=== PATIENT | male | born 1945 | race Caucasian/White ===

== ENCOUNTER 2018-04-12 08:48 | Outpatient (CLI) | payer MEDICARE, BC ==
--- NOTE | 2018-04-12 09:40 | RAD ---
CHEST PA AND LATERAL: HISTORY: A 72-year-old male with a history of dyspnea. FINDINGS: Heart size is within normal limits. Atherosclerosis of the aorta. No confluent pneumonia, overt savita ma, or pleural effusion. Stable from prior study. IMPRESSION: No acute intrathoracic disease. Atherosclerosis of the aorta. POS: [facility]
== END 2018-04-12 08:49 | disposition home or self-care (01) ==
LOC: RAD 08:48
PROVIDERS: ATTEND Internal Medicine Pulmonary Disease
DX: R06.00 Dyspnea, unspecified (principal); I70.0 Atherosclerosis of aorta
CPT/HCPCS: 71046

== ENCOUNTER 2018-07-27 07:37 | Outpatient (CLI) | payer MEDICARE, BC ==
--- NOTE | 2018-07-27 10:24 | MRI ---
MRI LUMBAR SPINE WITHOUT CONTRAST: Date: 07/27/18 COMPARISON: 08/07/15. HISTORY: Lumbar radiculopathy, chronic low back pain with occasional pain radiating into the right leg. TECHNIQUE: Multiplanar, multisequence MR imaging of the lumbar spine provided without contrast. FINDINGS: The sagittal [facility] demonstrates degenerative end plate change at the L2-3 level, similar when compared to the prior exam. On the basis of five lumbar-type vertebral bodies, conus medullaris termi nates at L1-2. T12-L1: Disc space narrowing, disc desiccation, anterior osteophyte formation, and central/left para central disc protrusion present with associated posterior osteophyte. There is superior disc herniati on at T12 as well. This causes a moderate degree of central canal stenosis at the T12-L1 level, which is similar when compared to prior imaging. There is disc protrusion also extending into the left daniela ral foramen. There is moderate/severe left neural foraminal stenosis and mild to moderate right neura l foraminal stenosis, similar when compared to prior imaging. L1-2: Mild bilateral facet hypertrophy. Disc space narrowing and mild disc bulge. No significant elyse tral canal stenosis. Mild bilateral facet hypertrophy with mild bilateral neural foraminal stenosis. L1-2: Disc space narrowing, disc desiccation, anterior osteophyte formation, and disc osteophyte com plex present. Prominent bilateral facet hypertrophy and hypertrophy of the ligamentum flavum. There i s severe stable central canal stenosis. There is mild right and moderate left neural foraminal stenos is, stable as well. L3-4: Disc space narrowing, disc desiccation, and disc osteophyte complex. Moderate bilateral facet hypertrophy and hypertrophy of the ligamentum flavum with a moderate degree of central canal stenosis , slightly worsened since the prior exam. Moderate right and mild left neural foraminal stenosis, tavon ssly unchanged. L4-5: Minimal anterolisthesis of L4 on L5, stable. Moderate bilateral facet hypertrophy. Moderate bi lateral neural foraminal stenosis, right greater than left, slightly worsened since the prior exam. M ild slightly worsened central canal stenosis. L5-S1: Prominent bilateral facet hypertrophy, right greater than left. No significant central canal stenosis. Mild right and moderate left neural foraminal stenosis, not significantly changed. The imaged retroperitoneal structures appear grossly unremarkable. IMPRESSION: Multilevel degenerative change noted within the lumbar spine as detailed above, slightly worsened whe n compared to the 08/07/15 exam. POS: [facility]
== END 2018-07-27 07:38 | disposition home or self-care (01) ==
LOC: BICMRI 07:37
PROVIDERS: ATTEND Neurological Surgery
DX: M47.26 Other spondylosis with radiculopathy, lumbar region (principal); M47.27 Other spondylosis with radiculopathy, lumbosacral region
CPT/HCPCS: 72148

== ENCOUNTER 2019-05-25 06:05 | Outpatient (CLI) | payer MEDICARE, BC ==
--- NOTE | 2019-05-30 17:42 | EKG ---
Test Reason : Blood Pressure : / mmHG Vent. Rate : 070 BPM Atrial Rate : 070 BPM P-R Int : 160 ms QRS Dur : 086 ms QT Int : 378 ms P-R-T Axes : 032 024 041 degrees QTc Int : 408 ms Normal sinus rhythm Possible Inferior infarct (cited on or before 12-JUL-2014) Abnormal ECG When compared with ECG of 12-JUL-2014 11:03, No significant change was found Confirmed by DR. Lang ROPER ([id number]) on 05/30/2019 5:42:13 PM Referred By: [email or web address] Confirmed By:DR. Lang ROPER
== END 2019-05-25 06:06 | disposition home or self-care (01) ==
LOC: LABBT 06:05
PROVIDERS: ATTEND Neurological Surgery
DX: Z01.810 Encounter for preprocedural cardiovascular examination (principal); M54.16 Radiculopathy, lumbar region
CPT/HCPCS: 93005; 93010

== ENCOUNTER 2019-05-30 05:34 | Day surgery (SDC) | payer MEDICARE, BC ==
[2019-05-25 08:52] VITALS: BMI 32.5
--- NOTE | 2019-05-29 13:15 | HP ---
HISTORY OF PRESENT ILLNESS: Mr. Hidalgo is known to us from previous evaluation of lumbar back pain and neurogenic claudication symptoms, returns now after several visits with Dr. Urrutia for epidural steroid injections. Ultimately, he had a discussion with Rocky regarding possible spinal cord stimulator placement as he wanted to avoid doing a back surgery. MRI from 2016 does reveal severe central canal stenosis at L2-L3, which certainly could explain a lot of his symptoms that included a right lower extremity L3 pain that he has had over the last year or so. He returns now with a new MRI which reveals severe foraminal stenosis to the right at L3 which appears to well explain the symptoms that he is experiencing. He would like to discuss possible surgical intervention at this time. PAST MEDICAL HISTORY: Significant for hypertension, hypercholesterolemia, diverticulosis, restless legs syndrome, unspecified kidney disease, prior history of CVA. SURGICAL HISTORY: Carpal tunnel release, hernia, knee replacement, tonsillectomy. CURRENT MEDICATIONS: 1. Fenofibrate. 2. Ramipril. 3. Aspirin. 4. Leflunomide. 5. PreserVision. 6. Tramadol. 7. Gabapentin. ALLERGIES: NO KNOWN DRUG ALLERGIES. PHYSICAL EXAMINATION: GENERAL: The patient is alert and oriented x3. MUSCULOSKELETAL: Gait is altered and antalgic. Lower extremity motor strength is normal. He has a positive right femoral stretch. ASSESSMENT: Lumbar radiculopathy. PLAN: Dr. Kahn met with the patient, reviewed imaging, advocated for right L3 foraminotomy. He explained to the patient risks, benefits, alternatives to the procedure. The patient expressed understanding, elected to move forward with surgery as discussed. I do believe the patient is mentally competent and capable of making medical decisions for himself. We will move forward with surgery as planned. Job ID: [id number]
[2019-05-30] MEDS ORDERED: EPINEPHrine 1 MG/ML AMP ONE (06:24)
[2019-05-30] MEDS ORDERED: Bupivacaine PF 0.5% 30 ML VIAL ONE (06:24)
[2019-05-30] MEDS ORDERED: Thrombin 5000 UNITS/5 ML VIAL ONE (06:24)
[2019-05-30] MEDS ORDERED: Fentanyl 100 MCG/2 ML VIAL ONE (06:59)
[2019-05-30] MEDS ORDERED: Midazolam HCl 2 mg/2 ml Vial ONE (07:01)
[2019-05-30] MEDS ORDERED: Tamsulosin HCl 0.4 MG CAP ONE (08:54)
[2019-05-30] MEDS ORDERED: ePHEDrine/0.9% NaCl/PF SYRINGE 50 mg/10 ml ONE (09:21)
[2019-05-30] MEDS ORDERED: Rocuronium Bromide 10 MG/ML (10ML VIAL) ONE (09:21)
[2019-05-30] MEDS ORDERED: Ondansetron PF 4 MG/2 ML Vial ONE (09:21)
[2019-05-30] MEDS ORDERED: Glycopyrrolate 0.2 MG/ML 5 ML SYRINGE ONE (09:21)
[2019-05-30] MEDS ORDERED: Lidocaine 1% PF 5 ML VIAL ONE (09:21)
[2019-05-30] MEDS ORDERED: Dexamethasone 20 MG/5 ML VIAL ONE (09:21)
[2019-05-30] MEDS ORDERED: PHENYLEPHRINE-NS 100 MCG/ML 10 ML SYRINGE ONE (09:21)
[2019-05-30] MEDS ORDERED: Ketorolac Tromethamine 30 MG/ML VIAL ONE (09:21)
[2019-05-30] MEDS ORDERED: PROPOFOL 200 MG/20 ML VIAL ONE (09:21)
--- NOTE | 2019-05-30 09:48 | OP ---
DATE OF PROCEDURE: 05/30/2019 [employer] APPLICATION DEVELOPER: Chuck Sawant PA-C INDICATION: Pain. DIAGNOSIS: Lumbar radiculopathy. PROCEDURES PERFORMED: Right L3 decompression, right L3 foraminotomy. ANESTHESIA: General. DESCRIPTION OF PROCEDURE: The patient was brought into the operating room and placed under general anesthesia. He was flipped from the supine to prone position on the operating room table. A linear incision was planned over the L3 segment. After prepping and draping and after an appropriate preoperative pause, the incision was created. The soft tissues were swept right of midline. A self-retaining retractor was placed. After confirming the appropriate level with C-arm fluoroscopy, high-speed cutting drill bit as well as 2, 3, and 4 mm Kerrisons were used to perform a laminectomy along the L3 segment on the right. The laminectomy extended up to the bottom of L2 and the top of L4. The laminectomy was extended laterally to encompass the medial aspect of the facet joint such that the L3 and L4 pedicles were palpated. A foraminotomy was then performed over the exiting L3 nerve root in order to decompress the L3 nerve root. At the completion of the procedure, the L3 nerve root was decompressed at its exit point as well as the descending lateral recess. The wound was then irrigated. Hemostasis was maintained throughout. The wound was then closed in anatomic layers and a pressure dressing was applied. There were no known procedural complications. Job ID: [id number]
== END 2019-05-30 12:10 | disposition home or self-care (01) ==
LOC: SDC 05:34
PROVIDERS: ATTEND Neurological Surgery
PROC: 01NB0ZZ Release Lumbar Nerve, Open Approach (ICD-10-PCS; principal; 2019-05-30)
DX: M48.062 Spinal stenosis, lumbar region with neurogenic claudication (principal); M54.16 Radiculopathy, lumbar region; I10 Essential (primary) hypertension; E78.5 Hyperlipidemia, unspecified; G25.81 Restless legs syndrome; E78.00 Pure hypercholesterolemia, unspecified; Z86.73 Personal history of transient ischemic attack (TIA), and cerebral infarction without residual deficits; Z79.82 Long term (current) use of aspirin; Z79.899 Other long term (current) drug therapy
CPT/HCPCS: 76000; J0171; J0690; J1100; J1885; J2001; J2250; J2405; J2704; J3010; S0020